=== PATIENT | male | born 1985 | race Caucasian/White ===

== ENCOUNTER 2021-01-22 14:02 | Emergency (ER) | payer OTHER ==
[2021-01-22] MEDS ORDERED: CYCLOBENZAPRINE10 MG PO (16:16)
[2021-01-22] MEDS ORDERED: MEDROL4 MG PO (16:16)
[2021-01-22] MEDS ORDERED: HYDROCODON-ACE1 EAC4 PO (16:16)
== END 2021-01-22 16:32 | disposition home or self-care (01) ==
LOC: ER1 14:02
DX: M51.36 Other intervertebral disc degeneration, lumbar region (principal)
CPT/HCPCS: 72131; 96372; 99283; J2270; J2930; J3360